=== PATIENT | male | born 1995 | race Caucasian/White ===

== ENCOUNTER 2022-05-26 18:19 | Emergency (ER) | payer SELFPAY ==
[~2022-05-26] VITALS: Ht 177.8 cm; Wt 74.8 kg
[2022-05-26 18:32] VITALS: BP 137/94
--- NOTE | 2022-05-26 18:43 | ED Upper Extremity ---
General Stated Complaint: LEFT SHOULDER PAIN Source: patient Exam Limitations: no limitations History of Present Illness Date Seen by Provider: May 26, 2022 Time Seen by Provider: 18:39 Initial Comments Patient is a 26-year-old male who presents ED with left shoulder pain. Patient states 45 minutes ago he was skating. States he braced his left arm [place] outdoor [place] while getting off another ramp and felt a sharp pain in his left shoulder immediately when he let go his left arm to move. Patient had a immediate pain in his left shoulder. Concern for possible dislocation with a history of dislocations in the past. Denies taking anything for pain. History of dislocation in the past. Denies taking thing for pain. Denies any distal numbness and tingling, nausea, vomiting, diarrhea Allergies and Home Medications Patient Home Medication List Home Medication List Reviewed: Yes Review of Systems Constitutional: No chills, No diaphoresis, No malaise, No weakness EENTM: No ear pain, No blurred vision, No double vision Respiratory: No cough, No dyspnea on exertion Cardiovascular: No chest pain Gastrointestinal: No abdominal pain, No constipation, No diarrhea Genitourinary: No decreased output, No discharge Musculoskeletal: No back pain; joint pain, joint swelling Skin: No change in color, No change in hair/nails All Other Systems Reviewed Negative Unless Noted: Yes Physical Exam Vital Signs Vital Signs - First Documented 05/26/22 18:32 Pulse 107 Resp 20 B/P (MAP) 137/94 (108) Pulse Ox 98 Capillary Refill : Height, Weight, BMI Height: '" Weight: lbs. oz. kg; BMI Method: General Appearance: WD/WN, no apparent distress HEENT: PERRL/EOMI, normal ENT inspection, TMs normal, pharynx normal Neck: non-tender, full range of motion, supple, normal inspection Cardiovascular: regular rate, rhythm, no edema, no gallop, no JVD Respiratory: chest non-tender, lungs clear, normal breath sounds, no respiratory distress, no accessory muscle use Gastrointestinal: normal bowel sounds, non tender, soft, no organomegaly Back: normal inspection Shoulder: normal inspection, non-tender, no evidence of injury, normal ROM (Left shoulder) Elbow/Forearm: normal inspection, non-tender, no evidence of injury, normal ROM, Left Wrist: Yes normal inspection, Yes non-tender, Yes no evidence of injury, Yes normal ROM Hand: normal inspection, non-tender, no evidence of injury, Left 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 Due to mechanism of injury and complaint x-ray was ordered to rule out dislocation or fracture. X-ray was negative for dislocation or fracture. Neurovascular intact. Patient was concerned he dislocated his left shoulder but states on the way over there vehicle had a pothole and it felt like his shoulder popped back into place. Patient was placed in sling for comfort. Recommend orthopedic outpatient follow-up in 1 to 2 weeks. Anti-inflammatories for pain. Ice to help with swelling and pain. Refused anything for pain here. Return precaution were discussed with patient Impression Primary Impression: Shoulder pain Disposition: 01 HOME, SELF-CARE Condition: Stable Departure-Patient Inst. Decision time for Depature: 19:07 Referrals: NO,LOCAL PHYSICIAN (PCP) Primary Care Physician SHELLI MARTÍNEZ MD Patient Instructions: Shoulder Pain ED Add. Discharge Instructions: Recommend orthopedic follow-up in 1 to 2 weeks for reevaluation. Sling for comfort. Anti inflammatories for pain CLARENCE ARREDONDO May 26, 2022 18:43
--- NOTE | 2022-05-26 19:03 | Diagnostic Imaging Report ---
EXAMINATION: Left shoulder radiographs. EXAM DATE: 05/26/2022 6:52 PM COMPARISON: None available. HISTORY: Left shoulder pain. TECHNIQUE: 3 views. FINDINGS: There is no acute fracture, dislocation or destructive osseous process. The joint spaces are normal. The soft tissues are normal. IMPRESSION: No acute osseous abnormality. Dictated by: Dictated on workstation # [id number]
== END 2022-05-26 19:14 | disposition home or self-care (01) ==
LOC: ER 18:21
DX: M25.512 Pain in left shoulder (principal); Z28.310 Unvaccinated for COVID-19; X50.1XXA Overexertion from prolonged static or awkward postures, initial encounter; Y93.51 Activity, roller skating (inline) and skateboarding
CPT/HCPCS: 73030